=== PATIENT | male | born 1960 | race Caucasian/White ===

== ENCOUNTER → 2021-04-06 00:28 | Outpatient (CLI) | payer OTHER, SELFPAY | PROVIDERS: PCP Internal Medicine; Visit Provider Internal Medicine Gastroenterology | DX: Z01.812 Encounter for preprocedural laboratory examination (principal); Z20.822 Contact with and (suspected) exposure to COVID-19 | CPT/HCPCS: C9803; U0003; U0005 ==

== ENCOUNTER 2021-04-09 00:58 | Day surgery (SDC) | payer OTHER, SELFPAY ==
[2021-03-23 14:18] VITALS: BMI 26.1
[2021-04-09 06:18] VITALS: BMI 25.5
[2021-04-09 06:20] VITALS: BP 151/91; PULSE 84; RESP 18; TEMP 35.8; O2SAT 98
[2021-04-09] MEDS: LACTATED RINGERS 1,000 ML 150 ML IV CONT (06:33)
--- NOTE | 2021-04-09 06:54 | WPDANESEPPF ---
Anes - Initial Pre Proc Eval Procedure: Operation Date: 04/09/21 07:30 Proposed Procedures p Screening Colonoscopy - Yvon August MD Date/Time: 04/09/21 06:54 Surgeon: Yvon August MD Pre Op Diagnosis: hx of colon polyps, neoplasm screening Patient Data Age: 60 Gender: M Height: 1.73 m Weight: 76.2 kg Last Vital Signs Temp 35.8 C L 04/09/21 06:20 Pulse 84 04/09/21 06:20 Resp 18 04/09/21 06:20 BP 151/91 H 04/09/21 06:20 Pulse Ox 98 04/09/21 06:20 Allergies Allergy/AdvReac Type Severity Reaction Status Date / Time atorvastatin [From Lipitor] AdvReac Unknown Cramping Verified 04/09/21 06:14 of the Muscles Home Medications Medication Instructions Recorded Confirmed Type azelastine 2 spray INTRANASAL DAILY 09/14/19 04/09/21 History diltiazem HCl 240 mg PO DAILY 09/14/19 04/09/21 History levothyroxine [Synthroid] 150 mcg PO DAILY 09/14/19 04/09/21 History lisinopril 10 mg PO BID 09/14/19 04/09/21 History montelukast 10 mg PO DAILY 09/14/19 04/09/21 History omega 5-zif-dhb-fish oil [Fish Oil] 2 cap PO DAILY 09/14/19 04/09/21 History tramadol 50 mg PO Q6H PRN 09/14/19 04/09/21 History aspirin [Ecotrin Low Strength] 81 mg PO DAILY #28 tablet 09/25/19 04/09/21 Rx tizanidine 2 mg PO QID PRN 03/23/21 04/09/21 History Patient hx anesthesia problems: none Family hx anesthesia problems: none PMFSH Past Medical History Medical History GERD (gastroesophageal reflux disease) Hypertension Thyroid cancer Surgical History Surgical History History of shoulder surgery History of thyroid surgery S/P right unicompartmental knee replacement September 2019 Family History Family History Grandparent Diabetes mellitus Mother Hypertension Social History Social History Smoking packs per day: 1 Smoking cigarettes per day: 20.0 Years smoked: 25 Smoking pack-years: 25.00 Smoking status: Former smoker Tobacco type: cigarettes Smoking end date: 10/17/98 Alcohol intake: current Drinks per week: 7 Alcohol use details: wine Living arrangements: with family Spiritual care concerns: No Anes - Eval Final PreProcedure Day of Procedure 04/09/21 06:54 Patient weight: normal Heart: regular rate and rhythm Lungs: clear to auscultation Airway: Mallampati scale class II Neurological: alert and oriented Last oral intake: >/= 8 hours ASA classification: II Emergent: no Anesthetic plan: proceed Anesthesia type and monitoring: general GIVS and standard monitoring Informed Consent: The patient's anesthetic plan and its attendant risks and benefits were discussed with the patient/family/POA. Questions were solicited and answers provided to the satisfaction of the patient/family/POA.
--- NOTE | 2021-04-09 07:12 | PM.HPGS ---
History of Present Illness History of Present Illness Consent: Risks, benefits, and alternatives have been discussed and questions answered. Patient agrees to proceed with procedure. Chief complaint: hx of colon polyps, neoplasm screening Narrative: Chad Silva is a 60 year old male who has a history of polyps who is here for colon cancer screening Review of Systems Review of Systems: All systems reviewed & are unremarkable except as noted in HPI and below PMFSH Past Medical History Medical History GERD (gastroesophageal reflux disease) Hypertension Thyroid cancer Surgical History Surgical History History of shoulder surgery History of thyroid surgery S/P right unicompartmental knee replacement September 2019 Family History Family History Grandparent Diabetes mellitus Mother Hypertension Social History Social History Smoking packs per day: 1 Smoking cigarettes per day: 20.0 Years smoked: 25 Smoking pack-years: 25.00 Smoking status: Former smoker Tobacco type: cigarettes Smoking end date: 10/17/98 Alcohol intake: current Drinks per week: 7 Alcohol use details: wine Living arrangements: with family Spiritual care concerns: No Meds Home Medications and Allergies Home Medications Medication Instructions Recorded Confirmed Type azelastine 2 spray INTRANASAL DAILY 09/14/19 04/09/21 History diltiazem HCl 240 mg PO DAILY 09/14/19 04/09/21 History levothyroxine [Synthroid] 150 mcg PO DAILY 09/14/19 04/09/21 History lisinopril 10 mg PO BID 09/14/19 04/09/21 History montelukast 10 mg PO DAILY 09/14/19 04/09/21 History omega 7-vie-ubc-fish oil [Fish Oil] 2 cap PO DAILY 09/14/19 04/09/21 History tramadol 50 mg PO Q6H PRN 09/14/19 04/09/21 History aspirin [Ecotrin Low Strength] 81 mg PO DAILY #28 tablet 09/25/19 04/09/21 Rx tizanidine 2 mg PO QID PRN 03/23/21 04/09/21 History Allergies Allergy/AdvReac Type Severity Reaction Status Date / Time atorvastatin [From Lipitor] AdvReac Unknown Cramping Verified 04/09/21 06:14 of the Muscles Vital Signs Vital Signs - 24 hr 04/09/21 06:20 Temperature 35.8 C L Pulse Rate 84 Respiratory Rate 18 Blood Pressure 151/91 H Pulse Oximetry 98 Exam Const: General: alert Orientation/consciousness: patient oriented x3 Resp: Auscultation: clear to auscultation bilaterally Cardio: Rhythm: regular rhythm GI: GI Palp: Yes Soft to palpation and No Tenderness to palpation present (GI) Neuro: General: patient oriented x3 Assessment and Plan Assessment and plan (1) Colon cancer screening: Code(s): Z12.11 - Encounter for screening for malignant neoplasm of colon Status: Acute Assessment and Plan: Colonoscopy with possible biopsy or polypectomy or cautery or injection of substances.
[2021-04-09 07:51] VITALS: BP 97/66; PULSE 84; RESP 16; O2SAT 97
[2021-04-09 08:01] VITALS: BP 107/72; PULSE 76; RESP 13; O2SAT 98
[2021-04-09 08:11] VITALS: BP 111/76; PULSE 70; RESP 17; O2SAT 100
== END 2021-04-09 08:23 | disposition home or self-care (01) ==
PROVIDERS: PCP Internal Medicine; Visit Provider Internal Medicine Gastroenterology
PROC: 0DJD8ZZ Inspection of Lower Intestinal Tract, Via Natural or Artificial Opening Endoscopic (ICD-10-PCS; CPT 45378; principal; 2021-04-09 07:30)
DX: Z12.11 Encounter for screening for malignant neoplasm of colon (principal); K57.30 Diverticulosis of large intestine without perforation or abscess without bleeding; Z86.010 Personal history of colon polyps; I10 Essential (primary) hypertension; K21.9 Gastro-esophageal reflux disease without esophagitis; E89.0 Postprocedural hypothyroidism; Z85.850 Personal history of malignant neoplasm of thyroid; Z79.82 Long term (current) use of aspirin; Z87.891 Personal history of nicotine dependence
CPT/HCPCS: 45378; J2704; J7120

== ENCOUNTER → 2021-08-27 07:16 | Outpatient (CLI) | payer OTHER, SELFPAY ==
--- NOTE | ~2021-08-27 | MR_ITS ---
EXAMINATION: MR knee LT wo con DATE: 08/27/2021 08:39 INDICATION: Left knee pain. TECHNIQUE: Magnetic resonance imaging (MRI) of the left knee was performed without intravenous contra st. Sequences included axial PD-weighted FS FSE, coronal PD-weighted FSE and PD-weighted FS FSE, sagi ttal PD-weighted FSE, and sagittal T2-weighted FS FSE. COMPARISON: Left knee radiographs 07/29/2021 FINDINGS: Medial compartment: There is a complex tear of body and posterior horn of medial meniscus. There is extensive partial thi ckness cartilage loss of femoral condyle and tibial condyle. There is full-thickness cartilage loss o f femoral condyle involving the central and medial articular surface. There is full-thickness cartila ge loss of tibial condyle involving the central articular surface. There is moderate subchondral vicenta a-like marrow signal intensity in femoral condyle and tibial condyle. Osteophytes are noted. Lateral compartment: Lateral meniscus is normal. Femoral cartilage is normal. There is cartilage surface irregularity of t ibial condyle. Osteophytes are noted. Patellofemoral compartment: There is deep partial thickness cartilage loss of patellar lateral facet with mild subchondral edema- like marrow signal intensity. There is cartilage surface irregularity of patellar medial facet. There is deep partial thickness cartilage loss of central trochlea. Osteophytes are noted. Ligaments and tendons: The anterior and posterior cruciate ligaments are normal. Medial collateral ligament and lateral hugh ateral ligament complex are normal. The patellar tendon is normal. Fluid: There is a small knee joint effusion. There is a small Candelario's cyst. IMPRESSION: 1. Severe chondrosis of medial compartment, moderate chondrosis of patellofemoral compartment, and mi ld chondrosis of lateral compartment. 2. Tear of medial meniscus. 3. Small knee joint effusion. 4. Small Candelario's cyst. Reviewed, dictated and finalized at location A. 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 Severe chondrosis of medial compartment, moderate chondrosis of patellofemor al compartment, and mild chondrosis of lateral compartment. 2. Tear of medial meniscus. 3. Small knee joint effusion. 4. Small Candelario's cyst.
== END ==
PROVIDERS: PCP Internal Medicine; Visit Provider Orthopaedic Surgery
DX: M25.462 Effusion, left knee (principal); M71.22 Synovial cyst of popliteal space [Baker], left knee; S83.242A Other tear of medial meniscus, current injury, left knee, initial encounter; X58.XXXA Exposure to other specified factors, initial encounter
CPT/HCPCS: 73721

== ENCOUNTER 2021-11-10 09:50 | Outpatient (CLI) | payer OTHER, SELFPAY ==
--- NOTE | 2021-11-10 10:46 | ECG_ITS ---
Measurements Intervals [place] Rate: 72 P: 28 WI: 147 QRS: 43 QRSD: 91 T: 30 QT: 368 QTc: 403 Interpretive Statements SINUS RHYTHM MINIMAL Q WAVES- INFERIOR LEADS BORDERLINE ECG Electronically Signed On 11-10-2021 11:00:16 [employer]PERVISOR [employer] by Calixto Rios D.O.
[2021-11-10 11:13] LABS: Basophils Absolute Auto 0.1 K/mm3 (0.0-0.1); Eosinophils Absolute Auto 0.1 K/mm3 (0-0.3); Eosinophils Percent Auto 1.7 % (0-4.4); Hematocrit 40.1 % (42.0-52.0); Hemoglobin 13.7 g/dL (14.0-18.0); Immature Granulocyte Absolute 0.02 K/mm3 (0.00-0.031); Immature Granulocyte Percent A 0.4 % (0-0.5); Lymphocytes Absolute Auto 1.47 K/mm3 (0.9-3.2); Lymphocytes Percent Auto 28.4 % (18.3-44.2); Mean Corpuscular HGB Conc 34.2 g/dl (32-36); Mean Corpuscular Hemoglobin 31.4 pg (26-34); Mean Platelet Volume 9.2 fl (7.4-10.4); Monocytes Absolute Auto 0.5 K/mm3 (0.1-0.6); Monocytes Percent Auto 9.7 % (2.6-8.5); Neutrophils Percent Auto 58.8 % (45.5-73.1); Platelet Count Result 242 k/mm3 (150-375); Red Blood Count 4.36 M/mm3 (4.6-6.20); Red Cell Distribution Width 12.2 % (11.5-14.5); White Blood Count 5.2 K/mm3 (4.5-10.0)
== END 2021-11-10 09:51 | disposition home or self-care (01) ==
LOC: ANHSURGERY 09:55
PROVIDERS: PCP Internal Medicine; Visit Provider Orthopaedic Surgery
DX: M17.12 Unilateral primary osteoarthritis, left knee (principal); Z01.818 Encounter for other preprocedural examination; R94.31 Abnormal electrocardiogram [ECG] [EKG]
CPT/HCPCS: 36415; 85025; 86850; 86900; 86901; 87081; 93005

== ENCOUNTER 2021-11-23 00:02 | Day surgery (SDC) | payer OTHER, SELFPAY ==
[2021-11-10 10:12] VITALS: BP 139/86; PULSE 80; RESP 16; TEMP 36.5; O2SAT 97; BMI 25.9
--- NOTE | 2021-11-10 10:26 | PC.NURSE ---
Report to the Outpatient Waiting Room, entrance under the green pavilion located off [facility], at time _8:30AM on date __11/23/21 . OR Time: ___10:30AM . - You and your visitor will be asked a series of questions to screen for COVID 19 for your protection. - A mask is required within the hospital. - Only one visitor is allowed at this time. Patient visitors will be guided where to wait when not with patient. Preoperative COVID Testing Requirements: No COVID Test needed if: (proof is required; if not received patient will have Rapid Test prior to entry) - Patient has received COVID Vaccine at least 14 days prior to procedure date or - Patient has positive COVID test result within last 90 days of surgery date. COVID Test needed if above criteria is not met If not COVID vaccinated a COVID test must be conducted within 72 hours of surgery and patient is asked to isolate self from time of testing until procedure. You will go to the [facility] for your COVID testing. The [facility] is located at the corner of [address] [facility]. You will only be called if COVID results are positive and your surgeon may reschedule your elective surgery date. Patients may have clear liquids (water, carbonated beverages, clear teas, apple juice) until 3 hours prior to surgery with a maximum of 20 ounces. - No food from midnight until time of surgery - Infants may have breast milk until 4 hours before surgery, infant formula 6 hours prior to surgery. - Children will be allowed to drink immediately following surgery. If applicable, please bring a bottle or sippy cup to assist with drinking. Juice, water, soda, and popsicles are readily available. For infants on formula, please bring formula the day of surgery. Pacifiers are allowed. Take the following medications with a SIP of water the morning of surgery: __SYNTHROID Medications to discontinue per physician ASPIRIN 7 DAYS PRE-OP PER DR YOUNG(PER PATIENT), ALL VITAMINS/SUPPLEMENTS 3 DAYS PRE-OP Date to take last dose__ASPIRIN-11/16/21, VITAMINS-11/19/21 Please no make-up, nail tongan, hairspray, perfume, deodorant, or body powder the day of surgery. No jewelry (including any body piercings) or valuables the day of surgery, leave them at home. Please take a shower or bath the night before, or the morning of, surgery with an antibacterial soap. Wear comfortable, loose fitting clothing. Children are encouraged to wear pajamas. - Jewelry must be removed prior to entering the operating room. Rings and piercings that are not removed may be cut off. - The hospital will not accept responsibility for valuables. - Please leave all valuables, including medications, at home the day of surgery. If you are going home after surgery, a licensed compressed air pile driver operator must drive you home. - NO public transportation without another adult. - We recommend that an adult stay with you for 24 hours following discharge. - We also recommend that you do not drive, make important decision, drink alcoholic beverages, or take any drugs that were not prescribed by your health care provider for at least 24 hours after your discharge time. For Pediatric surgeries, we recommend two adults accompany the child home (only one inside the building at this time). Follow any additional instructions given to you from your surgeon. Telephone instructions given to _PATIENT and asked if any additional questions and then verbalized understanding. Patient advised to call surgeon office or pre surgery nurse liaison [phone] if any additional questions.
[2021-11-23] VITALS (17 sets, daily range): BP systolic 117–162; BP diastolic 82–111; PULSE 92–121; RESP 11–20; TEMP 36.1–37.1; O2SAT 89–100
--- NOTE | ~2021-11-23 | XR_ITS ---
EXAMINATION: KNEE ONE/TWO VIEW-RIGHT DATE: 11/23/2021 10:08 INDICATION: Postoperative evaluation following left knee medial unicompartmental arthroplasty TECHNIQUE: Anteroposterior and lateral views of the left knee were obtained. COMPARISON: None. FINDINGS: Left knee medial unicompartmental arthroplasty appears well seated and in near anatomic alignment. N o fractures identified. Expected postoperative subcutaneous and intra-articular gas. IMPRESSION: 1. Left knee medial unicompartmental arthroplasty, negative for postoperative purposes. Reviewed, dictated and finalized at location A. ING AND PACKING SUPERVISOR IMPRESSION: 1. Left knee medial unicompartmental arthroplasty, negative for postoperative p urposes.
[2021-11-23] MEDS: ACETAMINOPHEN 500 MG TABLET 1000 MG PO ×3 (06:34→21:15)
[2021-11-23] MEDS: LACTATED RINGERS 1,000 ML 30 ML IV CONT ×2 (06:53→10:00)
[2021-11-23] MEDS: TRANEXAMIC ACID 1,000MG/ISO100 1,000 MG/100 ML BAG 200 MG IVPB (07:00)
--- NOTE | 2021-11-23 07:14 | WPDANESEPPF ---
Anes - Initial Pre Proc Eval Procedure: Operation Date: 11/23/21 07:30 Proposed Procedures p Left Knee Unicompartmental Arthroplasty - Chad Duffy MD Date/Time: 11/23/21 07:14 Surgeon: Chad Duffy MD Pre Op Diagnosis: Oa Left knee Patient Data Age: 61 Gender: M Height: 1.73 m Weight: 75.8 kg Last Vital Signs Temp 36.1 C L 11/23/21 06:54 Pulse 92 11/23/21 06:54 Resp 12 11/23/21 06:54 BP 117/82 11/23/21 06:54 Pulse Ox 99 11/23/21 06:54 Allergies Allergy/AdvReac Type Severity Reaction Status Date / Time atorvastatin [From Lipitor] AdvReac Unknown Cramping Verified 11/23/21 06:27 of the Muscles Home Medications Medication Instructions Recorded Confirmed Type Fish Oil 2 cap PO DAILY 09/14/19 11/23/21 History azelastine 2 spray INTRANASAL HS 09/14/19 11/23/21 History diltiazem HCl 240 mg PO HS 09/14/19 11/23/21 History levothyroxine [Synthroid] 150 mcg PO QAM 09/14/19 11/23/21 History lisinopril 10 mg PO BID 09/14/19 11/23/21 History montelukast 10 mg PO HS 09/14/19 11/23/21 History tramadol 50 mg PO Q6H PRN 09/14/19 11/23/21 History aspirin [Ecotrin Low Strength] 81 mg PO DAILY #28 tablet 09/25/19 11/23/21 Rx boron citrate 3 mg PO DAILY 11/10/21 11/23/21 History calcium carbonate [Calcium 600] 600 mg PO DAILY 11/10/21 11/23/21 History cholecalciferol (vitamin D3) 20 mcg PO DAILY 11/10/21 11/23/21 History glucosamine sulfate [Glucosamine] 1,500 mg PO DAILY 11/10/21 11/23/21 History tadalafil 20 mg PO DAILY PRN 11/10/21 11/23/21 History zinc 50 mg PO DAILY 11/10/21 11/23/21 History rivaroxaban 10 mg tablet 10 mg PO DAILY #14 tablet 11/11/21 Rx Patient hx anesthesia problems: none Family hx anesthesia problems: none Results Review: All pre-operative results and documents have been reviewed as part of the pre-operative evaluation. [facility] Past Medical History Medical History Arthritis of carpometacarpal (CMC) joint of left thumb Chronic pain syndrome GERD (gastroesophageal reflux disease) Hypertension Osteoarthritis of left knee Osteoarthritis of right knee Thyroid cancer Surgical History Surgical History History of shoulder surgery History of thyroid surgery S/P right unicompartmental knee replacement September 2019 Family History Family History Grandparent Diabetes mellitus Mother Hypertension Social History Social History Smoking packs per day: 1 Smoking cigarettes per day: 20.0 Years smoked: 25 Smoking pack-years: 25.00 Smoking status: Former smoker Tobacco type: cigarettes Smoking end date: 10/17/98 Alcohol intake: current Drinks per week: 7 Alcohol use details: wine Substance use: never Living arrangements: with family Additional living arrangements comments: Spiritual care concerns: No Anes - Eval Final PreProcedure Day of Procedure 11/23/21 07:14 Patient weight: normal Heart: regular rate and rhythm Lungs: clear to auscultation Airway: Mallampati scale class II Neurological: alert and oriented Last oral intake: >/= 8 hours ASA classification: III Emergent: no Anesthetic plan: proceed Anesthesia type and monitoring: general LMA and standard monitoring Results Review: All pre-operative results and documents have been reviewed as part of the pre-operative evaluation. Informed Consent: The patient's anesthetic plan and its attendant risks and benefits were discussed with the patient/family/POA. Questions were solicited and answers provided to the satisfaction of the patient/family/POA.
--- NOTE | 2021-11-23 07:15 | WPDHPUPDATE1 ---
History and Physical Update Update Date/Time: 11/23/21 07:15 History and Physical has been reviewed, including an updated exam of the patient. There are NO changes in the patient's condition. Risks, benefits, and alternatives have been discussed and questions answered. Patient agrees to proceed with procedure.
[2021-11-23] MEDS: ceFAZolin 2 GM/D5W 50 ML 2 GM/50 ML BAG IVPB ×2 (07:30→16:19)
[2021-11-23] MEDS: GENTAMICIN BONE CEMENT REFOBACIN 1 EACH TOPICAL (08:10)
[2021-11-23] MEDS: ceFAZolin SODIUM 1 GM VIAL IV PUSH (09:10)
--- NOTE | 2021-11-23 09:52 | P.OP_ITS ---
Procedure Note - Detailed Date of Procedure 11/23/21 Pre-op Diagnosis Oa Left knee Post-op Diagnosis same Procedure Performed Left knee unicompartmental replacement Surgeon Chad Duffy MD Dumping Machine Operator [place] Anesthesia general and regional Description of Procedure The patient was identified and the proper site identified. In the preop holding area the anesthesia team performed a left lower extremity block. He was then taken to the operating room and transferred to the OR table placing him supine taking care to pad his torso and extremities. After general anesthetic induction and intubation. a nonsterile tourniquet was placed high on the left thigh. The extremity was positioned, prepped, and draped in the usual sterile fashion. The extremity was exsanguinated and the tourniquet was inflated to 300 mmHg remaining up for approximately 45 minutes. An anterior midline incision was made and sharp dissection carried down through the subcutaneous tissue to the extensor mechanism. A modified medial parapatellar arthrotomy was performed. The articular and meniscal cartilage of the lateral compartment was inspected and noted to be in excellent shape. Anterior and posterior cruciate ligaments were in continuity. There were extensive degenerative changes medial compartment and milder patellofemoral changes. The marginal osteophytes were removed from the notch and the medial aspect of the medial femoral condyle, and the remaining meniscal tissue was removed. The f emur was sized to a medium. With the appropriate spoon and tibial guide, a tibial resection was made. This was sized to a B. Using the mill, the flexion and extension gaps were balanced. A trial reduction was undertaken. The range of motion of the knee was noted to be from full extension to 0-120 ? of flexion with excellent stability through range of motion. The polyethylene insert tracked nicely. The trial components were removed. The real medium femur and size left B tray for the left knee were cemented into place. The knee was held in about 30? of flexion while the cement cured. The tourniquet was released and excess cement was removed from the joint. Hemostasis was carried out. The knee was flushed with a copious amount of irrigation. After trialing, the appropriate real size three insert for the femoral component was inserted and the stability again assessed. The knee was noted to be stable as it was taken through range of motion. The periarticular tissues were injected with 60 mL of arthroplasty solution and after a 3 minutes Betadine bath in the wound, Surgicel powder was used both the deep to and above the extensor mechanism. The extensor mechanism was repaired with #2 Vicryl and 0 looped PDS suture, the subcu with 3-0 Monocryl and 2-0 Quill with tissue adhesive for the skin. A sterile dressing was applied. The patient tolerated the procedure well, was awakened, extubated, and taken to recovery room in stable condition. Estimated Blood Loss 100 Tourniquet Time 45 Drains No Packing No Pathology none sent Complications No immediate complications Condition stable Disposition PACU
--- NOTE | 2021-11-23 10:24 | SUR.PHASEI ---
1005 2 VIEWS OF XRAY TAKEN OF LT KNEE IN PACU.
[2021-11-23] MEDS: fentaNYL CITRATE INJ (*CRX) 100 MCG/2 ML VIAL 25 MCG IV PUSH ×2 (10:38→10:43)
[2021-11-23] MEDS: lisinopriL 10 MG TABLET PO ×2 (10:50→16:47)
--- NOTE | 2021-11-23 11:06 | WPDANESPNB ---
Anes - Peripheral Nerve Block Date/Time: 11/23/21 11:06 I have discussed with the patient/family/POA the placement of a peripheral nerve block for post-operative pain management, including associated risks, benefits, complications, and side effects. Alternative methods of post-operative analgesia were detailed. Questions were solicited and answers provided to the satisfaction of the patient/family/POA. Time-Out: A pre-procedural Time-Out was completed immediately before starting the procedure and confirmed: Patient Identification, Site, Procedure, Patient Position and the Availability of Requisite Equipment. Clinical Indications: Acute post-operative pain management requested by the operative surgeon. Nerve Block Insertion Note Anes-nerve block: adductor canal left Patient position: supine Skin prep: chlorhexidine Needle: 22 gauge, stimulating, insulated echogenic needle. Needle length: 80 mm Technique: ultrasound Injectate: bupivacaine 0.5% with epi 5 mcg/ml (30cc - no epi) Observations: tolerated well Complications: none Procedure start time:: 1102 Procedure end time:: 110
--- NOTE | 2021-11-23 12:10 | PC.NURSE ---
This patient, Chad Silva, was admitted to [facility]. Patient oriented to hospital policies and general routines including ID bracelet, bed and alarms, pain management, procedures, bathroom and other care routines, personal items, smoking policy, and room service/diet. Information on how to activate the Rapid Response Team has been discussed. Patient is encouraged to report perceived risks to care and to ask questions if they do not understand what they are told or what they should do.
[2021-11-23] MEDS: oxyCODONE HCL (*CRX) 5 MG TAB IR PO ×3 (13:04→21:15)
[2021-11-23] MEDS: SODIUM CHLORIDE 0.9% IV 1,000 ML 125 ML IV CONT (13:04)
[2021-11-23] MEDS: KETOROLAC 15 MG/ML VIAL (*BKC) IV PUSH (13:05)
[2021-11-23] MEDS: SENNA/DOCUSATE SODIUM TABLET 2 TAB PO (16:47)
--- NOTE | 2021-11-23 16:52 | PC.NURSE ---
[facility] Te[facility] Patient currently resting comfortable in bed. Ready for transport. Meal tray will be delivered to room 248.
[2021-11-23] MEDS: AZELASTINE HCL NASAL 0.1% 137 MCG/SPR 30 ML BTL 2 SPRAY NASAL (21:16)
[2021-11-23] MEDS: FAMOTIDINE 20 MG TABLET PO (21:34)
[2021-11-24] MEDS: ceFAZolin 2 GM/D5W 50 ML 2 GM/50 ML BAG IVPB ×2 (00:06→07:57)
[2021-11-24] MEDS: KETOROLAC 15 MG/ML VIAL (*BKC) IV PUSH ×2 (00:06→05:53)
[2021-11-24] MEDS: oxyCODONE HCL (*CRX) 5 MG TAB IR PO ×3 (00:07→09:44)
[2021-11-24 00:52] VITALS: BP 122/79; PULSE 98; RESP 18; TEMP 36.6; O2SAT 95
[2021-11-24 05:27] VITALS: BP 123/91; PULSE 84; RESP 20; TEMP 36.3; O2SAT 95
[2021-11-24 05:28] VITALS: BP 123/91; PULSE 84; RESP 20; TEMP 36.3; O2SAT 95
[2021-11-24] MEDS: LEVOTHYROXINE SODIUM 150 MCG TABLET PO (05:52)
[2021-11-24] MEDS: ACETAMINOPHEN 500 MG TABLET 1000 MG PO (05:53)
--- NOTE | 2021-11-24 07:18 | PM.DS ---
DS: Admitting Diagnosis Discharge Date 11/24/2021 Admitting Diagnosis left knee osteoarthritis DS: Discharge Diagnosis Discharge Diagnosis (1) S/P left unicompartmental knee replacement: Code(s): Z96.652 - Presence of left artificial knee joint Status: Acute Assessment and Plan: 58-year-old male admitted for observation after left unicompartmental knee replacement. Overall doing well and there is no drainage to the incision site. He tolerated therapy well yesterday and will do so again today prior to discharge. DS: Summary Hospital Course Reason for hospitalization: observation after outpatient procedure Hospital Course: 61-year-old male postop day 1 after left unicompartmental knee replacement. Incision is clean and dry on exam this morning. He is able to tolerate therapy and will be using crutches on discharge. He denies any nausea vomiting during his stay. Status at Discharge Functional status at discharge: independent ambulation ( Uses crutches) Time Spent with Patient Time attestation: Total time spent providing and/or coordinating discharge services: Exam Const: General: comfortable and no acute distress HENMT: Mouth: Yes moist mucous membranes Eyes: General: appearance normal, both eyes and all related structures Resp: Effort & Inspection: normal respiratory effort GI: Inspection: non-distended GI Palp: No Tenderness to palpation present (GI) Neuro: Sensory Exam: normal sensation Extrem: Other: Exam of the left knee shows a clean and dry surgical incision. He denies any numbness or tingling into the thigh or leg. He is able to wiggle toes and move his foot without difficulty. Psych: Mental Status: mental status grossly normal Discharge Plan Discharge Patient Disposition: Home, Self-Care Discharge Instructions: 3 times daily for 20 minutes each time, reclining in bed with ice packs over the incision and a pillow underneath the calf of the affected leg, not under the knee. Your wound is glued so it is okay to get into the shower and get the wound wet in two days. Be sure to read through all the information that came from a my office and the hospital. Most of the answers you will need can be found that material. Call the office with any questions that you cannot find answers to, or concerns you may have. After the Xarelto is completed, start taking one coated 325 mg aspirin daily and do this for four more weeks. Please call [facility] at as soon as possible to verify your follow-up appointment to be seen in 2 weeks. Also, call the office with any orthopedic/surgical related questions prior to follow-up. Be sure to get up and move around several times daily but do not overdo it. Take the arthritis formula Tylenol 650 mg tablet on an 8 hour schedule. A good 8 hour schedule is: 6:00 a.m., 2:00 p.m., 10:00 p.m. you may take the prescribed pain medication along with the Tylenol; it is not to be taken instead of the Tylenol. I would like for you to take the Tylenol on a schedule for 2-3 weeks. You have also been given a prescription for Celebrex that can be taken during the 1st week. Use the laxative Senekot S twice daily for 2 weeks after discharge while taking the prescription pain medication. Use Miralax once daily for 2 weeks after discharge while taking the prescription pain medication. Once the Xarelto is completed, if you wish to supplement your pain regimen with [id number] anti-inflammatory such as Advil or Aleve, that is fine. Follow the label instructions. Do not take this medicine if you have an allergy to NSAIDs. Stand Alone Forms: General Discharge Instructions Follow-up/Referrals: Chad Duffy MD [Physician] - [facility], PATRICIA-Patric [Advanced Practice Nurse] - Discharge Medications: New celecoxib 100 mg capsule 100 mg PO BID Qty: 14 RF: 0 oxycodone 5 mg capsule 5 mg PO Q6H PRN (Reason: pain) Qty: 20 RF: 0 Samantha
[2021-11-24] MEDS: polyethylene glycoL 3350 17 GM POWD.PACK PO (08:00)
[2021-11-24] MEDS: FAMOTIDINE 20 MG TABLET PO (08:00)
[2021-11-24] MEDS: SENNA/DOCUSATE SODIUM TABLET 2 TAB PO (08:00)
[2021-11-24] MEDS: ZINC SULFATE 220 MG CAPSULE PO (08:00)
[2021-11-24] MEDS: lisinopriL 10 MG TABLET PO (08:01)
[2021-11-24] MEDS: CALCIUM CARBONATE (OSCAL) 500 MG TABLET PO (08:01)
[2021-11-24] MEDS: RIVAROXABAN 10 MG TABLET PO (08:01)
[2021-11-24] MEDS: CHOLECALCIFEROL 400 UNITS TABLET (VIT D) PO (08:01)
--- NOTE | 2021-11-24 08:45 | WPDANESPN ---
Anes - Prog Note Post-Op Date/Time: 11/24/21 08:45 Cardiovascular status: normal Respiratory status: normal Airway patency: baseline Mental status: baseline Post-Op hydration status: normal Vital Signs: Last Vital Signs Temp 97.4 F L 11/24/21 05:28 Pulse 84 11/24/21 05:28 Resp 20 11/24/21 05:28 BP 123/91 H 11/24/21 05:28 Pulse Ox 95 11/24/21 05:28 Pain Score (VAS): 10/26 I/O: Intake & Output 11/23/21 11/24/21 11/24/21 23:59 07:59 15:59 Intake Total 650 440 Output Total 950 Balance -300 440 Post-procedural complaints: none Patient Feedback: Patient satisfied with anesthetic care.
[2021-11-24 09:53] VITALS: BP 143/86; PULSE 116; RESP 16; TEMP 36.7; O2SAT 96
== END 2021-11-24 11:22 | disposition home or self-care (01) ==
LOC: ANHSURGERY 09:43 → ANHSUROVER 11:44 → ANH2MED 02-05 15:22
PROVIDERS: PCP Internal Medicine; Visit Provider Orthopaedic Surgery
PROC: (CPT 27446; principal; 2021-11-23 07:30)
DX: M17.12 Unilateral primary osteoarthritis, left knee (principal); G89.18 Other acute postprocedural pain; I10 Essential (primary) hypertension; K21.9 Gastro-esophageal reflux disease without esophagitis; Z85.850 Personal history of malignant neoplasm of thyroid; Z96.651 Presence of right artificial knee joint; Z87.891 Personal history of nicotine dependence; Z79.01 Long term (current) use of anticoagulants
CPT/HCPCS: 27446; 64447; 36415; 73560; 85025; 86850; 86900; 86901; 87081; 93005; 97110; 97116; 97165; 97530; A9270; C1713; C1776; J0171; J0690; J1100; J1170; J1885; J2250; J2270; J2405; J2704; J2795; J3010; J7030; J7120

== ENCOUNTER 2022-03-20 09:39 | Observation (INO) | payer OTHER, SELFPAY ==
[2022-03-20] VITALS (31 sets, daily range): BP systolic 60–155; BP diastolic 38–103; PULSE 34–105; RESP 7–21; TEMP 36.2–37.6; O2SAT 95–100; BMI 24.7
--- NOTE | ~2022-03-20 | XR_ITS ---
EXAMINATION: XR chest 2V DATE: 03/20/2022 10:00 INDICATION: Chest pain TECHNIQUE: PA and lateral views of the chest are obtained. COMPARISON: None available FINDINGS: The lungs are free of acute opacities. There is no pleural effusion or pneumothorax. The ca rdiomediastinal silhouette is normal. There are bridging osteophytes at multiple levels in the spine, consistent with diffuse idiopathic skeletal hyperostosis (DISH). IMPRESSION: 1. No acute cardiopulmonary abnormality. Reviewed, dictated and finalized at location A.
--- NOTE | 2022-03-20 09:41 | ECG_ITS ---
Measurements Intervals [place] Rate: 74 P: 43 FL: 156 QRS: 61 QRSD: 87 T: 49 QT: 379 QTc: 421 Interpretive Statements SINUS RHYTHM COMPARED TO ECG 11/10/2021 11:01:34 NO SIGNIFICANT CHANGES Electronically Signed On 03-20-2022 16:47:42 CDT by Carla Polanco M.D.
[2022-03-20 09:56] LABS: Basophils Percent Auto 0.4 % (0.2-1.2); Eosinophils Absolute Auto 0.1 K/mm3 (0-0.3); Eosinophils Percent Auto 1.1 % (0-4.4); Hemoglobin 14.9 g/dL (14.0-18.0); Immature Granulocyte Absolute 0.01 K/mm3 (0.00-0.031); Immature Granulocyte Percent A 0.2 % (0-0.5); Lymphocytes Absolute Auto 1.48 K/mm3 (0.9-3.2); Lymphocytes Percent Auto 26.7 % (18.3-44.2); Mean Corpuscular HGB Conc 33.1 g/dl (32-36); Mean Corpuscular Hemoglobin 28.4 pg (26-34); Mean Corpuscular Volume 85.9 fl (80-100); Mean Platelet Volume 8.9 fl (7.4-10.4); Monocytes Absolute Auto 0.8 K/mm3 (0.1-0.6); Monocytes Percent Auto 13.7 % (2.6-8.5); Neutrophils Absolute Auto 3.2 K/mm3 (1.3-6.7); Neutrophils Percent Auto 57.9 % (45.5-73.1); Platelet Count Result 248 k/mm3 (150-375); Red Blood Count 5.24 M/mm3 (4.6-6.20); Red Cell Distribution Width 12.4 % (11.5-14.5); White Blood Count 5.6 K/mm3 (4.5-10.0)
[2022-03-20 10:07] LABS: Prothrombin Time 12.6 Seconds (11.1-14.7)
[2022-03-20 10:08] LABS: Alanine Aminotransferase 24 U/L (6-50); Albumin Level 5.2 g/dL (3.5-5.1); Alkaline Phosphatase 91 U/L (38-126); Anion Gap 11 mmol/L (8-16); Aspartate Amino Transferase 32 U/L (17-59); Bilirubin,Total 0.7 mg/dL (0.2-1.3); Blood Urea Nitrogen 13 mg/dL (9-20); Calcium 9.3 mg/dL (8.4-10.2); Carbon Dioxide 28 mmol/L (22-30); Chloride 92 mmol/L (98-107); Estimated CRCL calculation 71 ml/min; Estimated Glomerular Filt Rate > 60; Glucose 156 mg/dL (65-110); Lipase 160 U/L (23-300); Partial Thromboplastin Time 32.7 SECONDS (22.3-36.8); Sodium 131 mmol/L (137-145)
[2022-03-20 10:20] LABS: Troponin I < 0.012 ng/mL (0.000-0.034)
[2022-03-20] MEDS: ASPIRIN 81 MG CHEWABLE TABLET 324 MG PO (10:25)
[2022-03-20] MEDS: NITROGLYCERIN SL 0.4 MG TABLET SUBLINGUAL (10:26)
--- NOTE | 2022-03-20 10:26 | PC.NURSE ---
SL nitro given for chest tightness 05/26. BP 144/92 P72.
--- NOTE | 2022-03-20 10:32 | PC.NURSE ---
SL nitro given for cp 05/26. BP 114/87 P100.
--- NOTE | 2022-03-20 10:37 | PC.NURSE ---
Pt became lightheaded, pale and diaphoretic after 2nd dose of nitro. Bp 60/43 Hr 43. ERP at beside and normal saline started.
[2022-03-20] MEDS: SODIUM CHLORIDE 0.9% IV 1,000 ML 999 ML (10:47)
--- NOTE | 2022-03-20 10:50 | ED.CHESTPAIN ---
HPI - Chest Pain General Chief Complaint: Chest Pain Stated Complaint: CP Time Seen by Provider: 03/20/22 10:01 Source: patient History of Present Illness HPI narrative: 61 year old male presents today with complaints of chest tightness/heaviness that started about 30 minutes prior to arrival. Patient states he has a history of high blood pressure, hypertension, and currently being worked up for diabetes. Patient saw that his hemoglobin A1c today was 6.7. Patient denies any pain radiating down the arm or to the jaw. Patient's stated she could tell that he just did not look good. States he looked pale and sweaty. Patient currently rating chest pressure/pain 8 out of 10. Patient asked about his tadalafil and states he has not taken any in the last 24 hours. Related Data Home Medications Medication Instructions Recorded Confirmed azelastine 205.5 mcg (0.15 %) 2 spray intranasal HS 09/14/19 03/20/22 nasal spray diltiazem HCl 240 mg capsule,24 240 mg PO DAILY 09/14/19 03/20/22 hr,extended release levothyroxine 150 mcg tablet 150 mcg PO QAM 09/14/19 03/20/22 (Synthroid) lisinopril 10 mg tablet 10 mg PO BID 09/14/19 03/20/22 montelukast 10 mg tablet 10 mg PO HS 09/14/19 03/20/22 omega 2-pyf-rar-fish oil 900 2 cap PO DAILY 09/14/19 03/20/22 mg-1,400 mg capsule,delayed release (Fish Oil) tramadol 50 mg tablet 50 mg PO Q6H PRN Pain 09/14/19 03/20/22 boron citrate 3 mg tablet 3 mg PO DAILY 11/10/21 03/20/22 calcium carbonate 600 mg calcium 600 mg PO DAILY 11/10/21 03/20/22 (1,500 mg) tablet (Calcium) cholecalciferol (vitamin D3) 10 20 mcg PO DAILY 11/10/21 03/20/22 mcg (400 unit) tablet tadalafil 20 mg tablet 20 mg PO DAILY PRN Erectile 11/10/21 03/20/22 Dysfunction zinc 50 mg capsule 50 mg PO DAILY 11/10/21 03/20/22 magnesium 250 mg tablet 250 mg PO DAILY 03/20/22 03/20/22 Allergies Allergy/AdvReac Type Severity Reaction Status Date / Time nitroglycerin AdvReac Severe Hypotension Verified 03/20/22 12:43 [From Nitrostat] atorvastatin [From Lipitor] AdvReac Unknown Cramping Verified 03/20/22 09:48 of the Muscles Review of Systems Constitutional: Constitutional: Reports as per HPI, Denies chills, Denies fatigue, Denies fever(s) and Denies weakness Cardiovascular: Cardiovascular: Reports as per HPI and Reports chest pain Respiratory: Respiratory: Reports no additional respiratory complaints Gastrointestinal: Gastrointestinal: Reports no additional gastrointestinal complaints Genitourinary: Genitourinary: Reports no additional male genitourinary complaints Musculoskeletal: Musculoskeletal: Reports no additional musculoskeletal complaints [facility] Past Medical History Medical History Arthritis Chronic pain syndrome Gastroesophageal reflux disease Status post Alistair fundoplication. Hypercholesteremia Hypertension Hypothyroidism Thyroid cancer Status post thyroidectomy and radioiodine therapy. Surgical History Surgical History History of colonoscopy with polypectomy History of Alistair fundoplication (2000) History of shoulder surgery History of thyroidectomy (1998) Status post left unicompartmental knee replacement (10/2021) Status post ORIF of fracture of ankle Subsequent hardware removal. Status post right unicompartmental knee replacement (09/2019) Family History Family History Grandparent Diabetes mellitus Mother Hypertension No history of heart disease Father Medical history unknown Social History Social History (Updated 03/20/22 @ 15:59 by Carla Polanco MD) Social History: Surrogate decision maker: Code status: Full code. 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 . Has at least 1 son and daughter. Smoking packs per day: 1 Smoking cigarettes per day: 20.0 Years smoked: 25 Smoking pac
--- NOTE | 2022-03-20 11:25 | ED.CHESTPAIN ---
HPI - Chest Pain General Chief Complaint: Chest Pain Stated Complaint: CP Time Seen by Provider: 03/20/22 10:01 Related Data Home Medications Medication Instructions Recorded Confirmed azelastine 205.5 mcg (0.15 %) 2 spray intranasal HS 09/14/19 03/03/22 nasal spray diltiazem HCl 240 mg capsule,24 240 mg PO HS 09/14/19 03/03/22 hr,extended release levothyroxine 150 mcg tablet 150 mcg PO QAM 09/14/19 03/03/22 (Synthroid) lisinopril 10 mg tablet 10 mg PO BID 09/14/19 03/03/22 montelukast 10 mg tablet 10 mg PO HS 09/14/19 03/03/22 omega 1-vig-ida-fish oil 900 2 cap PO DAILY 09/14/19 03/03/22 mg-1,400 mg capsule,delayed release (Fish Oil) tramadol 50 mg tablet 50 mg PO Q6H PRN Pain 09/14/19 03/03/22 boron citrate 3 mg tablet 3 mg PO DAILY 11/10/21 03/03/22 calcium carbonate 600 mg calcium 600 mg PO DAILY 11/10/21 03/03/22 (1,500 mg) tablet (Calcium) cholecalciferol (vitamin D3) 10 20 mcg PO DAILY 11/10/21 03/03/22 mcg (400 unit) tablet glucosamine sulfate 750 mg tablet 1,500 mg PO DAILY 11/10/21 03/03/22 tadalafil 20 mg tablet 20 mg PO DAILY PRN Erectile 11/10/21 03/03/22 Dysfunction zinc 50 mg capsule 50 mg PO DAILY 11/10/21 03/03/22 Allergies Allergy/AdvReac Type Severity Reaction Status Date / Time atorvastatin [From Lipitor] AdvReac Unknown Cramping Verified 03/20/22 09:48 of the Muscles [facility] Past Medical History Medical History Arthritis of carpometacarpal (CMC) joint of left thumb Chronic pain syndrome GERD (gastroesophageal reflux disease) Hypertension Osteoarthritis of left knee Osteoarthritis of right knee Thyroid cancer Surgical History Surgical History History of shoulder surgery History of thyroid surgery S/P left unicompartmental knee replacement October 2021 S/P right unicompartmental knee replacement September 2019 Family History Family History Grandparent Diabetes mellitus Mother Hypertension Social History Social History Smoking packs per day: 1 Smoking cigarettes per day: 20.0 Years smoked: 25 Smoking pack-years: 25.00 Smoking status: Former smoker Tobacco type: cigarettes Smoking end date: 10/17/98 Alcohol intake: current Drinks per week: 7 Alcohol use details: wine Substance use: never Substance use type: does not use Additional living arrangements comments: Spiritual care concerns: No Course Consultations Consultation #1: Dr. Polanco cardiology contacted case reviewed. Plan admission for observation. Will call hospitalist. Date: 03/20/22 Time: 11:26 Consultation #2: Dr. Garcia consulted. Patient to be admitted. Date: 03/20/22 Time: 11:30 Vital Signs Vital signs: Vital Signs Temperature 36.9 C 03/20/22 09:42 Pulse Rate 75 03/20/22 09:42 Respiratory Rate 18 03/20/22 09:42 Blood Pressure 155/103 H 03/20/22 09:42 Pulse Oximetry 100 03/20/22 09:42 Oxygen Delivery Room Air 03/20/22 09:42 Temperature 36.9 C 03/20/22 09:42 Pulse Rate 71 03/20/22 10:45 Respiratory Rate 10 L 03/20/22 10:45 Blood Pressure 110/71 03/20/22 10:45 Pulse Oximetry 97 03/20/22 10:45 Oxygen Delivery Room Air 03/20/22 09:42 MDM - Chest Pain Lab Data Result diagrams: 03/20/22 09:51 03/20/22 09:51 Labs: Lab Results 03/20/22 03/20/22 03/20/22 Range/Units 09:51 09:51 09:51 WBC 5.6 (4.5-10.0) K/mm3 RBC 5.24 (4.6-6.20) M/mm3 Hgb 14.9 (14.0-18.0) g/dL Hct 45.0 (42.0-52.0) % MCV 85.9 (80-100) fl MCH 28.4 (26-34) pg MCHC 33.1 (32-36) g/dl RDW 12.4 (11.5-14.5) % Plt Count 248 (150-375) k/mm3 MPV 8.9 (7.4-10.4) fl Immature Gran % (Auto) 0.2 (0-0.5) % Neut % (Auto) 57.9 (45.5-7
[2022-03-20 11:49] LABS: SARS-CoV-2 RNA PCR Negative
--- NOTE | 2022-03-20 12:30 | ECG_ITS ---
Measurements Intervals [place] Rate: 71 P: 28 SD: 143 QRS: 62 QRSD: 97 T: 55 QT: 389 QTc: 424 Interpretive Statements SINUS RHYTHM COMPARED TO ECG 03/20/2022 09:47:57 NO SIGNIFICANT CHANGES Electronically Signed On 03-20-2022 16:52:28 CDT by Carla Polanco M.D.
--- NOTE | 2022-03-20 13:15 | PM.IMHP ---
H&P: HPI History of Present Illness Date/Time: 03/20/22 13:15 Chief Complaint: Chest tightness. Narrative: This is a 61-year-old male former smoker with hypertension, hypercholesterolemia, GERD status post Alistair fundoplication, and history of thyroid cancer who presented to the ED with complaints of chest tightness. He and his were watching their grand children this morning and simply while sitting down the couch he developed a pressure-like sensation in the left anterior chest associated with flushing, sweats, and lightheadedness. He also felt as though he could not take in a deep breath as it aggravated this discomfort somewhat. He was given nitroglycerin x2 in the ED without much benefit and with the 2nd dose his blood pressures dropped to the 60 systolic. He then received IV fluid boluses with improvement in his blood pressures and cessation of his chest pressure, which has not recurred. He had a similar episode at least 7 years ago at which time he was seen at [facility] where he reportedly had a negative stress test. He has no known history of coronary artery disease but was told on a CT of the spine several years ago that aortic calcifications were noted on imaging. He does frequent heavy lifting at work, up to 40 lb, and he has not been experiencing chest pain or shortness of breath with those activities. However it should be noted that he recently returned back to work within the last several weeks as he had been off for months following a unicompartmental left knee replacement. He has no history of venous thromboembolism and denies significant lower extremity edema and calf pain. Review of Systems Review of Systems: Twelve systems were reviewed. No fever, chills, or sweats. No recent cold or flu symptoms. No palpitations. No nausea or vomiting. No symptoms of indigestion, bloating, or belching. Except as documented, all other systems were reviewed and are negative. [facility] Past Medical History Medical History Arthritis Chronic pain syndrome Gastroesophageal reflux disease Status post Alistair fundoplication. Hypercholesteremia Hypertension Hypothyroidism Thyroid cancer Status post thyroidectomy and radioiodine therapy. Surgical History Surgical History History of colonoscopy with polypectomy History of Alistair fundoplication (2000) History of shoulder surgery History of thyroidectomy (1998) Status post left unicompartmental knee replacement (10/2021) Status post ORIF of fracture of ankle Subsequent hardware removal. Status post right unicompartmental knee replacement (09/2019) Family History Family History Grandparent Diabetes mellitus Mother Hypertension No history of heart disease Father Medical history unknown Social History Social History (Updated 03/20/22 @ 21:21 by Desirae Wright PA-C) Social History: Surrogate decision maker: Jessica Silva, spouse. Code status: Full code. Smoking packs per day: 1 Smoking cigarettes per day: 20.0 Years smoked: 25 Smoking pack-years: 25.00 Smoking status: Former smoker Tobacco type: cigarettes Smoking end date: 10/17/98 Alcohol intake: current Drinks per week: 7 Alcohol use details: wine Substance use: current Substance use type: does not use Additional living arrangements comments: Lives with in [place]. They have 2 children. 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 Spiritual care concerns: No Meds Home Medications and Allergies Home Medications Medication Instructions Recorded Confirmed Type azelastine 205.5 mcg (0.15 %) 2 spray intranasal HS 09/14/19 03/20/22 History nasal spray diltiazem HCl 240 mg capsule,24 240 mg PO DAILY 09/14/19 03/20/22 History hr,extended release levothyro
[2022-03-20 13:50] LABS: Troponin I < 0.012 ng/mL (0.000-0.034)
--- NOTE | 2022-03-20 14:01 | ADMGEN ---
This patient, Chad Silva, was admitted to IMU Room 200-01 at 1248. Patient/family oriented to hospital policies and general routines including ID bracelet, bed and alarms, visiting hours, pain management, procedures, bathroom and other care routines, personal items, smoking policy, room service/diet, and visiting hours. Information on how to activate the Rapid Response Team has been discussed. Patient/Family are encouraged to report perceived risks to care and to ask questions if they do not understand what they are told or what they should do.
--- NOTE | 2022-03-20 15:20 | PM.CNCAR ---
Assessment and Plan Assessment and plan (1) Chest tightness: Code(s): R07.89 - Other chest pain Status: Acute Assessment and Plan: Patient admitted with symptoms consistent with angina, although there was a pleuritic component to it which makes atypical. Troponin is negative x2 an EKG x2 is normal. Does have some risk factors but this does not appear to be and acute coronary syndrome or and STEMI. Echo and 3rd troponin are pending Checking a D-dimer (lab will try to run off the morning PT/INR) If significantly abnormal, consider a CTA of the chest to rule out PE. (had knee surgery 3 months ago and some lower extremity edema but exam is benign for evidence of DVT. 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 He has a history of hypertension hypercholesterolemia but no heart disease. History of GERD status post Alistair fundoplication. The patient had knee surgery 3 months ago and has just started back to work 2 weeks ago working nights in an unairconditioned environment He has had a couple episodes where he felt very dizzy and had to sit down. He did not work last night, and did not sleep well because his biorhythm is off. He and his went to the son's house to baby-sit the grandkids today. Around 9:00 a.m. while sitting on the sofa, doing nothing, he had the cessation of chest pressure like someone was sitting on his chest and he got hot and clammy. It was hard to take a deep breath which aggravated the discomfort. No nausea or radiation. He came to the emergency room. He received 2 nitroglycerin which did not help much initially but dropped his blood pressure to the 60s. After some IV fluids his blood pressure and chest pressure both got better. He has been fine since then up and about in the room with no particular problems. No history of any blood clots or calf pain. Some lower extremity edema at times. Normally can work hard in the yd and do heavy work on his job with no particular problems with chest pain or shortness of breath. Review of Systems Eyes: Eyes: Reports no additional eye complaints ENT: Denies epistaxis Cardiovascular: Cardiovascular: Reports chest pain, Denies diaphoresis, Reports leg edema, Denies lightheadedness and Denies palpitations Respiratory: Respiratory: Denies chest congestion, Denies dyspnea and Denies dyspnea on exertion Gastrointestinal: Gastrointestinal: Denies abdominal pain Comments: The chest pain did not feel like any GERD pain and he had experienced in the past. Genitourinary: Genitourinary: Denies hematuria Musculoskeletal: Musculoskeletal: Reports no additional musculoskeletal complaints Integumentary/Breasts: Skin/Breast: Denies rash Psychiatric: Psychiatric: Denies behavioral changes [facility] Past Medical History Medical History (Updated 03/20/22 @ 16:01 by Carla Polanco MD) Arthritis Chronic pain syndrome Gastroesophageal reflux disease Status post Alistair fundoplication. Hypercholesteremia Hypertension Hypothyroidism Thyroid cancer Status post thyroidectomy and radioiodine therapy. Surgical History Surgical History History of colonoscopy with polypectomy History of Alistair fundoplication (2000) History of shoulder surgery History of thyroidectomy (1998
--- NOTE | 2022-03-20 15:53 | ADMGEN ---
This patient, Chad Silva, was admitted to IMU Room 200-01 @ 1245. Patient/family oriented to hospital policies and general routines including ID bracelet, bed and alarms, visiting hours, pain management, procedures, bathroom and other care routines, personal items, smoking policy, room service/diet, and visiting hours. Information on how to activate the Rapid Response Team has been discussed. Patient/Family are encouraged to report perceived risks to care and to ask questions if they do not understand what they are told or what they should do.
[2022-03-20 16:11] LABS: Glucose Point of Care 159 mg/dl (65-105)
[2022-03-20 16:13] LABS: D Dimer 0.45 ug/mL (<0.48)
[2022-03-20 16:14] LABS: Troponin I < 0.012 ng/mL (0.000-0.034)
[2022-03-20 20:32] LABS: Glucose Point of Care 119 mg/dl (65-105)
[2022-03-20] MEDS: AZELASTINE HCL NASAL 0.1% 137 MCG/SPR 30 ML BTL 2 SPRAY NASAL (22:56)
[2022-03-20] MEDS: MONTELUKAST SODIUM 10 MG TABLET PO (22:57)
[2022-03-20] MEDS: lisinopriL 10 MG TABLET PO (22:58)
[2022-03-21] VITALS (8 sets, daily range): BP systolic 119–133; BP diastolic 92–95; PULSE 63–93; RESP 12–20; TEMP 36.1–37.1; O2SAT 98–100
[2022-03-21 05:34] LABS: Basophils Percent Auto 0.4 % (0.2-1.2); Eosinophils Absolute Auto 0.1 K/mm3 (0-0.3); Eosinophils Percent Auto 1.6 % (0-4.4); Hematocrit 42.2 % (42.0-52.0); Hemoglobin 14.1 g/dL (14.0-18.0); Lymphocytes Percent Auto 28.4 % (18.3-44.2); Mean Corpuscular HGB Conc 33.4 g/dl (32-36); Mean Corpuscular Hemoglobin 28.3 pg (26-34); Mean Corpuscular Volume 84.7 fl (80-100); Mean Platelet Volume 9.3 fl (7.4-10.4); Monocytes Absolute Auto 0.5 K/mm3 (0.1-0.6); Monocytes Percent Auto 10.5 % (2.6-8.5); Neutrophils Absolute Auto 2.9 K/mm3 (1.3-6.7); Neutrophils Percent Auto 59.1 % (45.5-73.1); Platelet Count Result 226 k/mm3 (150-375); Red Blood Count 4.98 M/mm3 (4.6-6.20); Red Cell Distribution Width 12.4 % (11.5-14.5); White Blood Count 4.9 K/mm3 (4.5-10.0)
[2022-03-21 05:42] LABS: Hemoglobin A1C 6.3 % (<5.7)
[2022-03-21 05:43] LABS: Anion Gap 7 mmol/L (8-16); Blood Urea Nitrogen 12 mg/dL (9-20); Calcium 8.9 mg/dL (8.4-10.2); Carbon Dioxide 27 mmol/L (22-30); Chloride 96 mmol/L (98-107); Cholesterol 189 mg/dL (0-200); Estimated CRCL calculation 80 ml/min; Estimated Glomerular Filt Rate > 60; Glucose 93 mg/dL (65-110); HDL Direct 51 mg/dL; Potassium 3.9 mmol/L (3.4-5.0); Sodium 130 mmol/L (137-145); Triglycerides 111 mg/dL (<150)
[2022-03-21 05:54] LABS: LDL Cholesterol Direct 96 mg/dL
[2022-03-21] MEDS: LEVOTHYROXINE SODIUM 150 MCG TABLET PO (06:23)
[2022-03-21 07:36] LABS: Glucose Point of Care 120 mg/dl (65-105)
[2022-03-21] MEDS: ENOXAPARIN 40 MG/0.4 ML SYRINGE SUB-Q (08:15)
[2022-03-21] MEDS: CHOLECALCIFEROL 400 UNITS TABLET (VIT D) PO (08:16)
[2022-03-21] MEDS: lisinopriL 10 MG TABLET PO (08:16)
--- NOTE | 2022-03-21 11:49 | PM.DS ---
DS: Admitting Diagnosis Discharge Date March 21, 2022 Admitting Diagnosis Chest pain DS: Discharge Diagnosis Discharge Diagnosis (1) Chest tightness: Code(s): R07.89 - Other chest pain Status: Acute Assessment and Plan: Negative workup. Follow up Cardiology for outpatient stress test and echo (2) Hypertension: Code(s): I10 - Essential (primary) hypertension Status: Chronic Assessment and Plan: Continue home meds and monitor (3) Hypothyroidism: Code(s): E03.9 - Hypothyroidism, unspecified Status: Acute Assessment and Plan: Continue home meds and monitor DS: Summary Hospital Course Hospital Course: Admitted for chest pain, negative workup. Follow up Cardiology for stress testing and ECHO Time Spent with Patient Time attestation: Total time spent providing and/or coordinating discharge services: Exam Narrative: General: Well-developed male sitting up in bed. Weight: 74 kg. BMI: 24.8. HEENT: PERRL, EOMI. Sclerae anicteric. Oral mucosa moist. Oropharynx clear. Neck: Supple. No bruits. Respiratory: Lungs are clear to auscultation bilaterally. Cardiovascular: Regular rate and rhythm with S1-S2. No murmur, rub, or gallop. Chest: No tenderness to palpation over the chest wall. Gastrointestinal: Abdomen is soft, nontender, and nondistended with positive bowel sounds. Skin: Warm and dry. No rash or lesions on limited exam. Extremities: No cyanosis, clubbing, or edema. Negative Macey sign. Radial and pedal pulses intact. Neurological: Alert. Cranial nerves 2-12 are grossly intact. No gross focal deficits to casual conversation. Psychiatric: Appropriate mood and affect. DS: Data Data Completed and Pending Labs on day of discharge: Labs from last 24 hours 03/21/22 03/21/22 03/21/22 07:33 04:39 04:39 WBC 4.9 RBC 4.98 Hgb 14.1 Hct 42.2 MCV 84.7 MCH 28.3 MCHC 33.4 RDW 12.4 Plt Count 226 MPV 9.3 Immature Gran % (Auto) 0.0 Neut % (Auto) 59.1 Lymph % (Auto) 28.4 [place] % (Auto) 10.5 H Eos % (Auto) 1.6 Baso % (Auto) 0.4 Lymph # (Auto) 1.40 [place] # (Auto) 0.5 Eos # (Auto) 0.1 Baso # (Auto) 0.0 Abs Immat Gran (auto) 0.00 Absolute Neuts (auto) 2.9 Absolute Nucleated RBC 0.0 Nucleated RBC % 0.0 D-Dimer Sodium Potassium Chloride Carbon Dioxide Anion Gap BUN Creatinine Estim Creat Clear Calc Estimated GFR Glucose POC Capillary Glucose 120 H Hemoglobin A1c Calcium Troponin I Triglycerides Cholesterol LDL Cholesterol Direct HDL Direct TSH (Reflex) 1.090 SARS-CoV-2 RNA (RT-PCR) 03/21/22 03/21/22 03/20/22 04:39 04:39 20:24 WBC RBC Hgb Hct MCV MCH MCHC RDW Plt Count MPV Immature Gran % (Auto) Neut % (Auto) Lymph % (Auto) [place] % (Auto) Eos % (Auto) Baso % (Auto) Lymph # (Auto) [place] # (Auto) Eos # (Auto) Baso # (Auto) Abs Immat Gran (auto) Absolute Neuts (auto) Absolute Nucleated RBC Nucleated RBC % D-Dimer Sodium 130 L Potassium 3.9 Chloride 96 L Carbon Dioxide 27 Anion Gap 7 L BUN 12 Creatinine 0.80 Estim Creat Clear Calc 80 Estimated GFR > 60 Glucose 93 POC Capillary Glucose 119 H Hemoglobin A1c 6.3 H Calcium 8.9 Troponin I Triglycerides 111 Cholesterol 189 LDL Cholesterol Direct 96 HDL Direct 51 TSH (Reflex) SARS-CoV-2 RNA (RT-PCR) 03/20/22 03/20/22 03/20/22 15:49 15:34 13:04 WBC RBC Hgb Hct MCV MCH MCHC RDW Plt Count MPV Immature Gran % (Auto) Neut % (Auto) Lymph % (Auto) [place] % (Auto) Eos % (Auto) Baso % (Auto) Lymph # (Auto) [place] # (Auto) Eos # (Auto) Baso # (Auto) Abs Immat Gran (auto) Absolute Neuts (auto) Absolute Nucleated RBC Nucleated RBC %
[2022-03-21] MEDS: OMEGA 3 POLYUNSAT FATTY ACIDS 1 GM CAP 2 GM PO (12:11)
[2022-03-21] MEDS: ASPIRIN 81 MG ENTERIC TABLET PO (12:12)
[2022-03-21] MEDS: CALCIUM CARBONATE (OSCAL) 500 MG TABLET PO (12:12)
[2022-03-21] MEDS: ZINC SULFATE 220 MG CAPSULE PO (12:12)
--- NOTE | 2022-03-21 12:49 | PM.PNCARD ---
Progress Note: A&P Assessment and Plan (1) Chest tightness: Code(s): R07.89 - Other chest pain Status: Acute Assessment and Plan: Patient admitted with symptoms consistent with angina, although there was a pleuritic component to it which makes atypical. Troponin is negative x2 an EKG x2 is normal. Does have some risk factors but this does not appear to be and acute coronary syndrome or and STEMI. On further questioning a were lot of noncardiac associated symptoms which occurred prior to in with his chest pain which includes lightheadedness, generalized weakness etc. and may be related to low blood pressure/dehydration. He had a couple episodes of dizziness at work which is in a hot environment prior to this episode. Okay for discharge for an outpatient stress test Aggressive hydration while at work (2) Hypertension: Code(s): I10 - Essential (primary) hypertension Status: Chronic Assessment and Plan: Blood pressure is controlled (3) Hypercholesteremia: Code(s): E78.00 - Pure hypercholesterolemia, unspecified Status: Acute Assessment and Plan: History of hypercholesterolemia, controlled (4) Elevated blood sugar: Code(s): R73.9 - Hyperglycemia, unspecified Status: Acute Assessment and Plan: Blood sugars run a little high and hemoglobin A1c was 6.3, may be Prediabetic. Follow-up with Dr. Marks. Subjective Date/time seen: Follow-up for chest pain, dizziness, clamminess 03/21/22 12:49 patient continues to do well, no particular problems with any chest pain, shortness of breath, dizziness etc.. Recalls that his whole body felt weak when this occurred prior to admission. D-dimer was normal. Echo was not performed yesterday. Review of Systems Constitutional: Constitutional: Denies difficulty sleeping Eyes: Eyes: Reports no additional eye complaints ENT: Reports system reviewed and no additional complaints, except as documented Cardiovascular: Cardiovascular: Denies chest pain, Denies lightheadedness and Denies palpitations Respiratory: Respiratory: Denies chest congestion and Denies dyspnea Gastrointestinal: Gastrointestinal: Denies abdominal pain Genitourinary: Genitourinary: Reports no additional male genitourinary complaints Musculoskeletal: Musculoskeletal: Reports no additional musculoskeletal complaints Integumentary/Breasts: Skin/Breast: Denies rash Neurologic: Denies vertigo Psychiatric: Psychiatric: Reports no additional psychiatric complaints Exam Const: Other: Malaise male in no distress, at the bedside. HENMT: Mouth: Yes moist mucous membranes Eyes: EOM: EOMs intact bilaterally Neck: Neck: supple Resp: Effort & Inspection: normal respiratory effort Auscultation: clear to auscultation bilaterally Cardio: Rate: regular rate Rhythm: regular rhythm Heart sounds: no murmurs Other: No chest wall tenderness GI: GI Palp: No Tenderness to palpation present (GI) Skin: General skin exam: no rashes or lesions noted Neuro: Speech: normal speech Motor exam (neuro): Normal motor muscle tone present throughout Extrem: General: no edema Psych: Mental Status: mental status grossly normal Objective Data Vital Signs Vital Signs: Vital Signs - 24 hr 03/20/22 14:00 03/20/22 13:30 03/20/22 16:14 Temperature 97.1 F L Pulse Rate 81 85 88 Respiratory Rate 21 H Blood Pressure 131/84 Pulse Oximetry 97 Oxygen Delivery 03/20/22 16:50 03/20/22 20:00 03/20/22 20:00 Temperature 99.2 F Pulse Rate 84 94 94 Respiratory Rate 20 Blood Pressure 126/85 Pulse Oximetry 96 Oxygen Delivery 03/20/22 20:55 03/20/22 22:00 03/20/22 23:14 Temperature 99.7 F H Pulse Rate 74 97 Respiratory Rate 20 Blood Pressure 125/93 H Pulse Oximetry 96 100 Oxygen Delivery Room Air 03/21/22 00:00 03/21/22 00:00 03/20/22 19:50 Temperature Pulse Rate 74 Respiratory Rate
--- NOTE | 2022-03-21 13:16 | PCCCNOTE ---
On 03/21/22, the student, [Lulú Allen], provided care and completed [facility] documentation on this patient. I have reviewed the student's documentation and agree with the findings.
== END 2022-03-21 13:01 | disposition home or self-care (01) ==
LOC: ANHED 11:38 → ANHIMU 12:19
PROVIDERS: Emergency Medicine; Internal Medicine Cardiovascular Disease; Physician Assistant; Admitting Provider Chiropractor; Emergency Provider Nurse Practitioner Family; PCP Internal Medicine; Visit Provider Chiropractor
DX: R07.89 Other chest pain (principal); R42 Dizziness and giddiness; I10 Essential (primary) hypertension; E03.9 Hypothyroidism, unspecified; K21.9 Gastro-esophageal reflux disease without esophagitis; Z85.850 Personal history of malignant neoplasm of thyroid; Z87.891 Personal history of nicotine dependence; Z79.82 Long term (current) use of aspirin; E78.00 Pure hypercholesterolemia, unspecified; Z20.822 Contact with and (suspected) exposure to COVID-19
CPT/HCPCS: 36415; 71046; 80048; 80053; 80061; 82948; 83036; 83690; 84443; 84484; 85025; 85380; 85610; 85730; 93005; 96372; 99285; A9270; C9803; G0378; J1650; J7030; U0003; U0005

== ENCOUNTER → 2022-12-25 10:26 | Outpatient (CLI) | payer OTHER, SELFPAY ==
--- NOTE | ~2022-12-25 | MR_ITS ---
MRI of the lumbar spine Clinical History: Radiculopathy Technique: Axial T2-weighted images, and sagittal T1-weighted, T2-weighted, and T2 fat-sat images wer e acquired. COMPARISON: 11/12/2011 Findings: There is no acute fracture or subluxation of the lumbar spine. Questionable minimal chronic wedging deformities of T12 and L1. No bone marrow signal abnormality seen. At L1-L2, there is no disc bulge or herniation. There is facet joint hypertrophy. No spinal canal vanessa nosis or neural foraminal narrowing. At L2-L3, there is minimal disc bulge with facet joint hypertrophy. No spinal canal stenosis or neura l foraminal narrowing. At L3-L4, there is minimal disc bulge with facet joint hypertrophy. No [place] spinal canal stenosis or neural foraminal narrowing. At L4-L5, disc bulge and facet arthropathy result in mild central canal stenosis/thecal sac compressi on, as well as bilateral lateral recess stenosis. There is mild left neural foraminal narrowing and m oderate right neural foraminal narrowing. At L5-S1, there is minimal disc bulge with mild facet arthropathy. No [place] spinal canal stenosis. Th ere is severe left neural foraminal narrowing and moderate to severe right neural foraminal narrowing . Paravertebral soft tissues are unremarkable. Impression: Moderate degenerative spondylosis at L4-L5 and L5-S1, as detailed above. Possible minimal chronic anterior wedging deformities of T12 and L1. No acute fracture or subluxation . Reviewed, dictated and finalized at [facility]. [employer] Impression: Moderate degenerative spondylosis at L4-L5 and L5-S1, as detailed above. Possible minimal chronic anterior wedging deformities of T12 and L1. No acute f racture or subluxation.
== END ==
PROVIDERS: PCP Internal Medicine; Visit Provider Nurse Practitioner Family
DX: M47.26 Other spondylosis with radiculopathy, lumbar region (principal)
CPT/HCPCS: 72148

== ENCOUNTER → 2023-03-01 10:43 | Outpatient (CLI) | payer OTHER, SELFPAY ==
--- NOTE | ~2023-03-01 | US_ITS ---
EXAMINATION: US carotid duplex BI DATE: 03/01/2023 11:18 INDICATION: Amaurosis fugax TECHNIQUE: Grayscale, color Doppler, and pulsed Doppler images of the cervical carotid arteries were obtained. The degree of vessel stenosis is placed in one of the following categories: normal, <50%, 5 0-69%, >=70% but less than near-occlusion, near-occlusion, or total occlusion. Note that percent sten osis relative to normal distal artery lumen diameter is indirectly measured from velocity measurement s as described by Aristides, et al. Radiology 2003; 229:340-346. Notes: Normal: Peak systolic velocity <125 centimeters/sec and no plaque <50%. Peak systolic velocity <125 ( EDV <40; ICA/CCA PSV ratio <2.0; used these factors only a tandem lesions or low cardiac output or co ntralateral disease) 50-69 %: PSV 125-230 (EDV 40-100; ratio 2-4) >= 70% but less than near occlusion: PSV greater than 230 (EDV > 100; ratio> 4.0) Near Occlusion: PSV that is variable; markedly narrowed lumen Occlusion: Absent flow on color/spectral Doppler and no lumen on silveira scale. COMPARISON: No prior studies for comparison. . FINDINGS: RIGHT: The right common carotid artery (CCA) peak systolic velocity (PSV) is 95 cm/s. The right internal car otid artery (ICA) PSV is 69 cm/s. The right ICA end-diastolic velocity (EDV) is 23 cm/s. The right IC A/CCA PSV ratio is 0.7. The external carotid artery (ECA) PSV is 109 cm/s. There is antegrade flow in the right vertebral artery. LEFT: The left CCA PSV is 92 cm/s. The left ICA PSV is 66 cm/s. The left ICA EDV is 21 cm/s. The left ICA/C CA PSV ratio is 0.7. The ECA PSV is 80 cm/s. There is antegrade flow in the left vertebral artery. IMPRESSION: 1. Less than 50% stenosis in the right internal carotid artery by sonographic criteria. 2. Less than 50% stenosis in the left internal carotid artery by sonographic criteria. Reviewed, dictated and finalized at [facility]. IMPRESSION: 1. Less than 50% stenosis in the right internal carotid artery by sonographic c caleb. 2. Less than 50% stenosis in the left internal carotid artery by sonographic carl shukla.
== END ==
PROVIDERS: PCP Internal Medicine; Visit Provider Ophthalmology
DX: G45.3 Amaurosis fugax (principal)
CPT/HCPCS: 93880